=== PATIENT | female | born 1945 | race Caucasian/White ===

== ENCOUNTER → 2016-10-05 | Outpatient (CLI) | payer MEDICARE, OTHER | LOC: GMAL 15:08 | PROVIDERS: ATTEND Family Medicine | DX: N30.00 Acute cystitis without hematuria (principal) ==

== ENCOUNTER 2017-03-31 23:10 | Emergency (ER) | payer MEDICARE, OTHER ==
[2017-04-01] MEDS ORDERED: CIPROFLOXACIN 500 MG TAB PO ONE ×2 (00:04→00:30)
[2017-04-01] MEDS ORDERED: PHENAZOPYRIDINE HCL 200 MG TAB PO ONE (00:04)
[2017-04-01 00:16] VITALS: TEMP 97.9
[2017-04-01] MEDS ORDERED: cefTRIAXone SODIUM 1 GM VIAL IM ONE (00:30)
[2017-04-01] MEDS ORDERED: CIPROFLOXACIN 250 MG TAB ONE (00:32)
[2017-04-01] MEDS ORDERED: CIPROFLOXACIN 500 MG TAB ONE (00:33)
[2017-04-01] MEDS ORDERED: cefTRIAXone SODIUM 1 GM VIAL ONE (00:34)
[2017-04-01] MEDS ORDERED: LIDOCAINE 1% 10 ML VIAL INJ ONE (00:35)
--- NOTE | 2017-04-01 00:50 | ED.PDOC ---
History of Present Illness - General Chief Complaint: Problem Stated Complaint: painful urination Time Seen by Provider: 03/31/17 23:22 Source: patient Exam Limitations: no limitations - History of Present Illness Initial Comments: The patient is a 72-year-old female presenting to the emergency room secondary to symptoms of a recurrent urinary tract infection. The patient has had several urinary tract infections with the last year. She is noticing some hematuria as well as some bladder spasms and dysuria along with frequency. Symptoms have been present for less than 24 hours. No back pain. No fever. No dizziness. Previous urine cultures done here have grown out Escherichia coli. Timing/Duration: 24 hours Severity: moderate Improving Factors: nothing Worsening Factors: nothing Associated Symptoms: denies symptoms Allergies/Adverse Reactions: Allergies NO KNOWN ALLERGY Allergy (Verified 04/01/17 00:15) Home Medications: Ambulatory Orders Synthroid 07/06/16 Ciprofloxacin [Cipro] 250 mg PO BID #14 tab 04/01/17 Review of Systems - Review of Systems Constitutional: States: no symptoms reported EENTM: States: no symptoms reported Respiratory: States: no symptoms reported Cardiology: States: no symptoms reported Gastrointestinal/Abdominal: States: no symptoms reported Genitourinary: States: see HPI Musculoskeletal: States: no symptoms reported Skin: States: no symptoms reported Neurological: States: no symptoms reported Endocrine: States: no symptoms reported All other Systems: No Change from Baseline Past Medical History (General) - Patient Medical History Hx Seizures: No Hx Stroke: No Hx Dementia: No Hx Asthma: No Hx of COPD: No Hx Cardiac Disorders: No Hx Congestive Heart Failure: No Hx Pacemaker: No Hx Hypertension: No Hx Thyroid Disease: Yes Hx Diabetes: No Hx Gastroesophageal Reflux: No Hx Renal Disease: No Hx Cancer: No Hx of HIV: No Hx Hepatitis C: No Hx MRSA: No Surgical History: Hysterectomy - Vaccination History Hx Tetanus, Diphtheria Vaccination: No Hx Influenza Vaccination: No Hx Pneumococcal Vaccination: No Immunizations Up to Date: No - Social History Hx Tobacco Use: No Hx Chewing Tobacco Use: No Hx Alcohol Use: No Hx Substance Use: No Hx Substance Use Treatment: No Hx Depression: No Feels Threatened In Home Enviroment: No Feels Threatened In a Relationship: No Hx Physical Abuse: No Hx Emotional Abuse: No Hx Suspected Abuse: No Family Medical History - Family History Father Family History: Unknown Living Status: Hx Family Hypertension: Yes Hx Cardiac Disease: Yes Physical Exam - Physical Exam General Appearance: Alert, Comfortable, No apparent distress Eye Exam: bilateral normal Ears, Nose, Throat: hearing grossly normal Neck: full range of motion Respiratory: no respiratory distress, no accessory muscle use Cardiovascular/Chest: no edema Rectal Exam: deferred Back Exam: no CVA tenderness Extremity: normal range of motion, no pedal edema 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 The patient has experienced this before. The patient is receiving a dose of Rocephin and ciprofloxacin here tonight. She needs to keep well- hydrated. She can use Azo for symptom relief. She needs to follow-up with her primary care doctor early next week for culture results. ER warnings were given for any worsening. She'll be placed on ciprofloxacin for 7 days. - Results/Orders Results/Orders: Vital Signs - 24 hr 03/31/17 23:45 Temperature 97.9 F Pulse Rate [ 73 monitor] Respiratory 16 Rate Blood Pressure 145/86 [Left Arm] O2 Sat by Pulse 97 Oximetry Laboratory Tests 04/01/17 00:05 Urine Color Yellow Urine Appearance Sl cloudy Urine pH 6.0 Ur Specific [place] 1.010 Urine Protein Trace Urine Glucose (UA) Negative Urine Ketones Negative Urine Blood Large H Urine Nitrite Negative Urine Bilirubin Negative Urine Urobilinogen 0.2 Ur Leukocyte Esterase Moderate H Urine RBC 5-10 H Urine WBC Tntc H Ur Epithelial Cells 1-3 Urine Bacteria 4+ H Departure - Departure Clinical Impression: Cystitis, acute hemorrhagic Disposition: Discharge to Home or Self Care Condition: Fair Departure Forms: ED Discharge - Pt. Copy, Patient Portal Self Enrollment Instructions: DI for Acute Cystitis Diet: regular diet Activity: increase activity as tolerated Referrals: Alex Corbett III, MD [Primary Care Provider] - 1-5 Days Prescriptions: Ciprofloxacin [Cipro] 250 mg PO BID #14 tab Home Medications: Ambulatory Orders Synthroid 07/06/16 Ciprofloxacin [Cipro] 250 mg PO BID #14 tab 04/01/17 Additional Instructions: the patient is a 72-year-old female presenting with acute hemorrhagic cystitis. The patient has experienced this before. The patient is receiving a dose of Rocephin and ciprofloxacin here tonight. She needs to keep well- hydrated. She can use Azo for symptom relief. She needs to follow-up with her primary care doctor early next week for culture results. ER warnings were given for any worsening. She'll be placed on ciprofloxacin for 7 days.
[2017-04-01 01:07] VITALS: BP 142/80; O2SAT 98
== END 2017-04-01 01:06 | disposition home or self-care (01) ==
LOC: ER 23:10
DX: N30.90 Cystitis, unspecified without hematuria (principal); E07.9 Disorder of thyroid, unspecified
CPT/HCPCS: 81001; 87086; J0696

== ENCOUNTER → 2017-04-09 | Outpatient (CLI) | payer MEDICARE, OTHER | LOC: GMAL 10:49 | PROVIDERS: ATTEND Family Medicine | DX: N30.00 Acute cystitis without hematuria (principal) ==

== ENCOUNTER → 2018-01-10 | Outpatient (CLI) | payer MEDICARE, OTHER | LOC: GMAL 12:22 | PROVIDERS: ATTEND Family Medicine | DX: E03.9 Hypothyroidism, unspecified (principal); D51.3 Other dietary vitamin B12 deficiency anemia; E55.9 Vitamin D deficiency, unspecified ==